=== PATIENT | female | born 1995 | race Caucasian/White ===

== ENCOUNTER 2016-04-19 15:21 | Emergency (ER) | payer OTHER ==
[~2016-04-19] VITALS: Ht 157.5 cm; Wt 66.9 kg
[2016-04-19 15:25] VITALS: TEMP 36.5; Ht 157.5 cm; Wt 66.9 kg
[2016-04-19] MEDS ORDERED: KETOROLAC TROMETHAMINE 30 MG/ML VIAL IV STA (15:49)
[2016-04-19 16:12] LABS: BASO % 0.3 %; BASO ABS # 0.02 K/uL (0-0.2); EOS % 3.8 %; IG% 0.2 %; LYMPH % 31.6 %; LYMPH ABS # 1.92 K/uL (1.2-3.4); MEAN CELL VOLUME 65.5 fL (80-100); MEAN CORPUSCULAR HEMOGLOBIN 21.6 pg (25-34); MEAN CORPUSCULAR HGB CONC 32.9 g/dl (32-36); MONO % 5.9 %; NEUT % 58.2 %; PLATELET COUNT 264 K/uL (130-400); RED BLOOD COUNT 5.19 M/uL (4.2-5.4); WHITE BLOOD COUNT 6.07 K/uL (4.8-10.8)
[2016-04-19 16:25] LABS: ALT/SGPT 21 U/L (12-78); BLOOD UREA NITROGEN 14 mg/dl (7-18); BUN/CREATININE RATIO 22.1 (10-20); CALCIUM 9.2 mg/dl (8.5-10.1); CARBON DIOXIDE 23 mmol/L (21-32); CHLORIDE 104 mmol/L (98-107); CREATININE 0.62 mg/dl (0.60-1.20); GLUCOSE 90 mg/dl (70-99); POTASSIUM 4.2 mmol/L (3.5-5.1); SODIUM 138 mmol/L (136-145)
[2016-04-19 16:28] LABS: ALKALINE PHOSPHATASE 67 U/L (45-117); AST/SGOT 18 U/L (15-37)
[2016-04-19 16:34] LABS: URINE APPEARANCE CLEAR (CLEAR); URINE BILIRUBIN NEG (NEG); URINE COLOR YELLOW; URINE EPITHELIAL CELL AUTO >30 /lpf (0-5); URINE NITRITE NEG (NEG); URINE PH 5.5 (4.5-7.5); URINE SPECIFIC GRAVITY 1.025 (1.000-1.030); UROBILINOGEN NEG (NEG); ZZUR CULT IF INDIC CLEAN CATCH YES
[2016-04-19 16:40] LABS: MANUAL MICROSCOPIC REQUIRED? NO; REVIEW REQ? NO
[2016-04-19 16:42] LABS: COMPLETE YES; MICROCYTOSIS PRESENT; POLYCHROMASIA 1+
--- NOTE | 2016-04-19 17:50 | DIAGNOSTIC IMAGING REPORT ---
EXAMINATION: PELVIC ULTRASOUND (transabdominal and endovaginal scanning) CLINICAL HISTORY: Pelvic pain and cramping COMPARISON STUDY: None FINDINGS: The uterus measured 6.2 x 2.6 x 4.2 cm.. The endometrial stripe measured 2 mm. An IUD is visualized within the endometrial cavity. The right ovary measured 34 x 19 x 23 mm. The left ovary measured 31 x 20 x 23 mm.. Multiple bilateral ovarian follicles are visualized. There is no ultrasonographic evidence of ovarian torsion. It should be noted that ovarian torsion can be present with normal Doppler ultrasonographic findings. There is a small amount of free fluid within the cul-de-sac, slightly greater than is typical for physiologic free fluid. IMPRESSION: 1. Ultrasonographically normal uterus. An IUD is visualized 2. Multiple bilateral ovarian follicles. No ultrasonographic evidence of torsion 3. Free fluid within the cul-de-sac. Electronically signed by: Boom Rios M.D. 04/19/2016 5:48 PM Dictated Date/Time: 04/19/2016 5:45 PM
[2016-04-19] MEDS ORDERED: VALA500T60 PO (17:51)
[2016-04-19] MEDS ORDERED: FLUO40CA8 PO (17:51)
[2016-04-19] MEDS ORDERED: ONDA4TAB46 PO (18:36)
[2016-04-19 19:00] VITALS: BP 116/78; PULSE 72; O2SAT 96
--- NOTE | 2016-04-19 22:06 | EMERGENCY ROOM VISIT NOTE ---
History Report prepared by Blake: Delfin Franks Under the Supervision of: Dr. Golden Spangler D.O. First contact with patient: 15:39 Chief Complaint: ED VAG BLEEDING Stated Complaint: SEVERE CRAMPING AND NAUSEA History of Present Illness The patient is a 20 year old female who presents to the Emergency Room with complaints of persistent abdominal pain that she describes as cramping that started 2 days ago. The patient notes that she had similar symptoms in October when she got her IUD placed. The patient also notes that she usually only has her period for 5 days, but this cycle has lasted 10. Four days ago, the patient presented to [facility] for an odor and was prescribed for an antibiotic for abnormal bacteria. However, the patient hasn't started taking the antibiotics yet because she is worried about being more nauseous than she already is from the discomfort. The patient notes that this discomfort is worse than her normal menstrual cycle and radiates to her lower back. The odor is still there, but it is better than it was on . Pt denies headache, change in vision, fevers , chest pain, shortness of breath, vomiting, diarrhea, pain with urination, and melena. Source of History: patient Onset: 2 days Position: abdomen Quality: cramping Timing: other (persistent) Associated Symptoms: + back pain (radiation ), No chest pain, No diarrhea, No fevers, No headache, No melena, No nausea, No urinary symptoms, No vomiting Note: Other associated symptoms: longer menstrual cycle, vaginal odor, ' Denies: vision changes Review of Systems See HPI for pertinent positives & negatives. A total of 10 systems reviewed and were otherwise negative. Past Medical & Surgical Medical Problems: (1) Asthma (2) Bronchitis (3) IUD (intrauterine device) in place (4) Pneumonia (5) Urinary tract infection Family History FH: cancer Social History Smoking Status: Never Smoker Alcohol Use: occasionally Housing Status: lives with roommate Occupation Status: student Current/Historical Medications Scheduled Fluoxetine (Prozac), 40 MG PO DAILY Valacyclovir (Valtrex), 500 MG PO DAILY Scheduled PRN Ondansetron Hcl (Zofran), 4 MG PO TID PRN for Nausea Allergies Coded Allergies: No Known Allergies (Unverified , 04/19/16) Physical Exam Vital Signs Date Time Temp Pulse Resp B/P Pulse Ox O2 Delivery O2 Flow Rate FiO2 04/19/16 19:00 72 16 116/78 96 04/19/16 17:50 78 16 118/80 98 Room Air 04/19/16 15:25 36.5 89 18 136/85 96 Room Air Physical Exam GENERAL: sitting up in bed, no distress, non-toxic EYE EXAM: normal conjunctiva, OROPHARYNX: no exudate, no erythema, lips, buccal mucosa, and tongue normal and mucous membranes are moist NECK: supple, no nuchal rigidity, no adenopathy, non-tender LUNGS: Clear to auscultation. Normal chest wall mechanics HEART: no murmurs, S1 normal and S2 normal ABDOMEN: abdomen soft, non-tender, normo-active bowel sounds, no masses, no rebound or guarding. BACK: Back is symmetrical on inspection and there is no deformity, no midline tenderness, no CVA tenderness. SKIN: no rashes and no bruising UPPER EXTREMITIES: upper extremities are grossly normal. LOWER EXTREMITIES: No pitting edema. NEURO EXAM: Normal sensorium, cranial nerves II-XII grossly intact, normal speech, no gross weakness of arms, no gross weakness of legs. Gross sensation intact. PELVIC: Normal vaginal mucosa, normal external genitalia, no obvious discharge. Medical Decision & Procedures ER Provider Diagnostic Interpretation: US:Per my review, radiologist interpretation. EXAMINATION: PELVIC ULTRASOUND (transabdominal and endovaginal scanning) CLINICAL HISTORY: Pelvic pain and cramping COMPARISON STUDY: None FINDINGS: The uterus measured 6.2 x 2.6 x 4.2 cm.. The endometrial stripe measured 2 mm. An IUD is visualized within the endometrial cavity. The right ovary measured 34 x 19 x 23 mm. The left ovary measured 31 x 20 x 23 mm.. Multiple bilateral ovarian follicles are visualized. There is no ultrasonographic evidence of ovarian torsion. It should be noted that ovarian torsion can be present with normal Doppler ultrasonographic findings. There is a small amount of free fluid within the cul-de-sac, slightly greater than is typical for physiologic free fluid. IMPRESSION: 1. Ultrasonographically normal uterus. An IUD is visualized 2. Multiple bilateral ovarian follicles. No ultrasonographic evidence of torsion 3. Free fluid within the cul-de-sac. Electronically signed by: Boom Rios M.D. 04/19/2016 5:48 PM Dictated Date/Time: 04/19/2016 5:45 PM Laboratory Results 04/19/16 15:50 Red Blood Count 5.19, Mean Corpuscular Volume 65.5, Mean Corpuscular Hemoglobin 21.6, Mean Corpuscular Hemoglobin Concent 32.9, Mean Platelet Volume 11.0, Neutrophils (%) (Auto) 58.2, Lymphocytes (%) (Auto) 31.6, Monocytes (%) (Auto) 5.9, Eosinophils (%) (Auto) 3.8, Basophils (%) (Auto) 0.3, Neutrophils # (Auto) 3.53, Lymphocytes # (Auto) 1.92, Monocytes # (Auto) 0.36, Eosinophils # (Auto) 0.23, Basophils # (Auto) 0.02 04/19/16 15:50 Test 04/19/16 15:50 04/19/16 16:12 White Blood Count 6.07 K/uL (4.8-10.8) Red Blood Count 5.19 M/uL (4.2-5.4) Hemoglobin 11.2 g/dL (12.0-16.0) Hematocrit 34.0 % (37-47) Mean Corpuscular Volume 65.5 fL (80-100) Mean Corpuscular Hemoglobin 21.6 pg (25-34) Mean Corpuscular Hemoglobin Concent 32.9 g/dl (32-36) Platelet Count 264 K/uL (130-400) Mean Platelet Volume 11.0 fL (7.4-10.4) Neutrophils (%) (Auto) 58.2 % Lymphocytes (%) (Auto) 31.6 % Monocytes (%) (Auto) 5.9 % Eosinophils (%) (Auto) 3.8 % Basophils (%) (Auto) 0.3 % Neutrophils # (Auto) 3.53 K/uL (1.4-6.5) Lymphocytes # (Auto) 1.92 K/uL (1.2-3.4) Monocytes # (Auto) 0.36 K/uL (0.11-0.59) Eosinophils # (Auto) 0.23 K/uL (0-0.5) Basophils # (Auto) 0.02 K/uL (0-0.2) RDW Standard Deviation 38.6 fL (36.4-46.3) RDW Coefficient of Variation 16.7 % (11.5-14.5) Immature Granulocyte % (Auto) 0.2 % Immature Granulocyte # (Auto) 0.01 K/uL (0.00-0.02) Polychromasia 1+ Microcytosis PRESENT Urine Color YELLOW Urine Appearance CLEAR (CLEAR) Urine pH 5.5 (4.5-7.5) Urine Specific Bethany 1.025 (1.000-1.030) Urine Protein NEG (NEG) Urine Glucose (UA) NEG (NEG) Urine Ketones NEG (NEG) Urine Occult Blood 2+ (NEG) Urine Nitrite NEG (NEG) Urine Bilirubin NEG (NEG) Urine Urobilinogen NEG (NEG) Urine Leukocyte Esterase SMALL (NEG) Urine WBC (Auto) 10-30 /hpf (0-5) Urine RBC (Auto) 0-4 /hpf (0-4) Urine Hyaline Casts (Auto) 1-5 /lpf (0-5) Urine Epithelial Cells (Auto) >30 /lpf (0-5) Urine Bacteria (Auto) 1+ (NEG) Urine Test NEG (NEG) Anion Gap 11.0 mmol/L (3-11) Est Creatinine Clear Calc Drug Dose 129.9 ml/min Estimated GFR () > 150.0 Estimated GFR (Non- 129.8 BUN/Creatinine Ratio 22.1 (10-20) Calcium Level 9.2 mg/dl (8.5-10.1) Total Bilirubin 0.8 mg/dl (0.2-1) Direct Bilirubin 0.2 mg/dl (0-0.2) Aspartate Amino Transf (AST/SGOT) 18 U/L (15-37) Alanine Aminotransferase (ALT/SGPT) 21 U/L (12-78) Alkaline Phosphatase 67 U/L (45-117) Total Protein 8.1 gm/dl (6.4-8.2) Albumin 4.4 gm/dl (3.4-5.0) Lipase 104 U/L (73-393) Laboratory results per my review. Medications Administered Medications (Trade) Dose Ordered Sig/Leila Route Start Time Stop Time Status Last Admin Dose Admin Ketorolac Tromethamine (Toradol Inj) 30 mg NOW STAT IV 04/19/16 15:49 04/19/16 15:50 DC 04/19/16 16:05 30 MG ED Course ED COURSE: Vital signs were reviewed and showed normal The patients medical record was reviewed The above diagnostic studies were performed and reviewed. ED treatments and interventions as stated above. 1539: The patient was evaluated in room A4. A complete history and physical examination was performed. 1549: Ordered Toradol Inj 30 mg IV. 1727: Upon reevaluation, the patient is resting comfortably.I discussed my findings with the patient and she understands and agrees with the treatment plan. Based on the patients age, coexisting illnesses, exam and lab findings the decision to treat as an outpatient was made. The patient remained stable while under my care. The patient appeared well at the time of discharge. Medical Decision Differential diagnoses includes but is not limited to appendicitis, diverticulitis, small bowel obstruction, malignancy, hernia, urinary tract infection, torsion, and ectopic (if female), perforation, trauma, infectious. Patient is a 20-year-old female who presents the ER for lower abdominal cramping which has been present for the past 10 days. She recently had an IUD placed couple months back admits to bleeding with cramping. She seen by [facility] last and GC and chlamydia were negative but she was diagnosed with bacterial vaginosis and was placed on Flagyl. She did not start this medication. She has no other complaints at this time. No urinary symptoms. Her exam is benign. CBC was unremarkable with exception of mild anemia; BMP, LFTs and bilirubin was unremarkable. Lipase is negative. UA was contaminated with multiple epithelial cells. was negative. GC included are again pending. Ultrasound shows IUD was in place. No signs of torsion. Patient was updated in regards to findings. I did recommend starting her Flagyl as this was previously prescribed by chest. We will hold on treating GC and chlamydia as they were previously negative by [facility]. I recommended following up with her PCP/[facility] as this is likely dysfunctional uterine bleeding and will likely resolve on its own. Discussed with Pt concerning signs and symptoms to watch out for. Pt was instructed to follow up with their PCP and discussed with the patient their option to return to the ED at anytime for persistent or worsening symptoms. The appropriate anticipatory guidance and out-patient management, including indications for return to the emergency department, were explained at length to the patient and understood. Impression Primary Impression: Abdominal cramping Additional Impression: Vaginal bleeding Scribe Attestation The scribe's documentation has been prepared under my direction and personally reviewed by me in its entirety. I confirm that the note above accurately reflects all work, treatment, procedures, and medical decision making performed by me. Departure Information Dispostion Home / Self-Care Prescriptions Ondansetron Hcl (ZOFRAN) 4 Mg Tab 4 MG PO TID Y for Nausea, #20 TAB Prov: Golden Spangler, DO 04/19/16 Patient Instructions My [facility] Additional Instructions Please follow up with your primary care doctor with in the next 24 hours. Any worsening of your symptoms, please return to the ED immediately. This includes persistent vaginal bleeding, worsening abdominal pain, fevers greater than 100.4 , persistent nausea vomiting, or any other concerning signs or symptoms from your standpoint. Please start your Flagyl as previously prescribed by [facility] You may take Zofran as needed for nausea. Problem Qualifiers
[2016-04-24 16:02] LABS: CHLAMYDIA TRACH RNA*** DETECTED (NOT DETECTED); GC (NEIS GONORRHOEAE)RNA** NOT DETECTED (NOT DETECTED)
--- NOTE | 2016-04-27 14:34 | Pharmacy Progress Note ---
ED Pharmacist Culture FollowUp Date of Service: Apr 27, 2016. Patient's chlamydia trachomatis RNA screen resulted positive today. The Neisseria gonorrhoeae RNA screening was negative. She was not treated for c. trachomatis while in the ER as she had reported that this test was negative when performed by [facility]. Discussed case with Dr Spangler. Plan is to start the patient on Doxycycline Hyclate 100mg PO BID x 7 days. I attempted to contact the patient with the phone number provided ([phone] ) however there was no answer. I left a message asking the patient to return my call.
--- NOTE | 2016-04-28 11:50 | Pharmacy Progress Note ---
ED Pharmacist Culture FollowUp Date of Service: Apr 28, 2016. Apr 28, 2016. * Attempted to contact the patient again with the c. trachomatis results. I again left a message at the number provided ([phone]) asking for a return phone call. Apr 27, 2016. * Patient's chlamydia trachomatis RNA screen resulted positive today. The Neisseria gonorrhoeae RNA screening was negative. She was not treated for c. trachomatis while in the ER as she had reported that this test was negative when performed by [facility]. Discussed case with Dr Spangler. Plan is to start the patient on Doxycycline Hyclate 100mg PO BID x 7 days. * I attempted to contact the patient with the phone number provided ([phone]) however there was no answer. I left a message asking the patient to return my call. * 2nd attempt made to contact this patient @1800 today; again there was no answer. A second message was not left. When she calls back we will need to call in the above Doxycycline Rx to the patient's preferred pharmacy. * She should be counseled on the following: * Do not miss doses of Doxycycline, take as prescribed to avoid treatment failure * Avoid sex until 7 days after treatment is complete * Sexual partners require testing as well and treatment if also infected. These partners may be asymptomatic and should be tested regardless of presence or absence symptoms. * Repeat testing is usually recommended in 3 months to confirm successful treatment * If symptoms persist after completion of treatment, a test for cure may be needed sooner
== END 2016-04-19 19:01 | disposition home or self-care (01) ==
LOC: C.EDB 15:23 → C.EDA 19:01
DX: R10.9 Unspecified abdominal pain (principal); N93.9 Abnormal uterine and vaginal bleeding, unspecified; J45.909 Unspecified asthma, uncomplicated; Z79.899 Other long term (current) drug therapy